=== PATIENT | male | born 1975 | race Caucasian/White ===

== ENCOUNTER 2016-06-09 15:10 | Emergency (ER) | payer BC ==
[2016-06-09 17:11] VITALS: BP 128/74
--- NOTE | 2016-06-09 17:21 | UC ---
Skin Complaint HPI - HPI Summary HPI Summary: large red, blistered rash, on the back wraps around left side. - History of Current Complaint Chief Complaint: UCRash Time Seen by Provider: 06/09/16 17:09 Stated Complaint: RASH,BACK PAIN Hx Obtained From: Patient Onset/Duration: Sudden Onset, Lasting Days Skin Exposure Onset/Duration: Days Ago Timing: Constant Onset Severity: Moderate Current Severity: Moderate Pain Intensity: 5 Pain Scale Used: 0-10 Numeric Location: Discrete - left back and side Character: Swelling, Pruritus, Raised, Painful Aggravating: Clothing, Humidity Alleviating: Nothing Associated Signs & Symptoms: Positive: Rash - Allergy/Home Medications Allergies/Adverse Reactions: Allergies Allergy/AdvReac Type Severity Reaction Status Date / Time No Known Allergies Allergy Verified 06/09/16 17:11 Home Medications: Home Medications Lisinopril & Hydrochlorothiazi [Zestoretic 20-12.5 mg-] 1 tab PO DAILY 06/09/16 [History Confirmed 06/09/16] Review of Systems Constitutional: Negative Skin: Rash Eyes: Negative ENT: Negative Respiratory: Negative Cardiovascular: Negative Gastrointestinal: Negative Genitourinary: Negative Motor: Negative Neurovascular: Negative Musculoskeletal: Negative Neurological: Negative Psychological: Negative All Other Systems Reviewed And Are Negative: Yes PMH/Surg Hx/FS Hx/Imm Hx Previously Healthy: Yes Cardiovascular History Of: Reports: Hypertension - Surgical History Surgical History: None - Family History Known Family History: Positive: Hypertension, Other - no fmh of blood clotting disorder; mother has had cellulitis on legs - Social History Alcohol Use: Occasionally Substance Use Type: None Smoking Status (MU): Never Smoked Tobacco Physical Exam Triage Information Reviewed: Yes Appearance: Well-Appearing, Well-Nourished, Pain Distress Vital Signs: Initial Vital Signs Temp 98.3 F 06/09/16 16:56 Pulse 89 06/09/16 16:56 Resp 16 06/09/16 16:56 BP 128/74 06/09/16 16:56 Pulse Ox 97 06/09/16 16:56 Vital Signs Reviewed: Yes Eye Exam: Normal Eyes: Positive: Conjunctiva Clear ENT Exam: Normal ENT: Positive: Normal ENT inspection, Hearing grossly normal, Pharynx normal, TMs normal Dental Exam: Normal Neck exam: Normal Neck: Positive: Supple, Nontender, No Lymphadenopathy Respiratory Exam: Normal Respiratory: Positive: Chest non-tender, Lungs clear, Normal breath sounds Cardiovascular Exam: Normal Cardiovascular: Positive: RRR, No Murmur, Pulses Normal Abdominal Exam: Normal Abdomen Description: Positive: Nontender, No Organomegaly, Soft Bowel Sounds: Positive: Present Musculoskeletal Exam: Normal Musculoskeletal: Positive: Strength Intact, ROM Intact, No Edema Neurological Exam: Normal Neurological: Positive: Alert Psychological Exam: Normal Skin: Positive: Other - eyrthemic base with blisters and scabs along t4 dermatome Course/Dx - Course Course Of Treatment: hx obtained, exam performed, meds prescribed. - Differential Diagnoses - Skin Complaint Differential Diagnoses: Cellulitis, Contact Dermatitis, Drug Rash, Varicella Zoster - Diagnoses Provider Diagnoses: shingles Discharge - Discharge Plan Condition: Stable Disposition: HOME Patient Education Materials: Shingles (ED) Additional Instructions: Take the medication as prescribed. keep the blisters covered. cool compress for itching, ibuprofen or hydrocodone for pain. follow upw ith any increase in systems
== END 2016-06-09 17:31 | disposition home or self-care (01) ==
LOC: UCCORT 15:10
DX: B02.9 Zoster without complications (principal)
CPT/HCPCS: 99212; G0463

== ENCOUNTER 2017-05-08 17:56 | Emergency (ER) | payer BC ==
[2017-05-08 19:45] VITALS: BP 129/69
--- NOTE | 2017-05-08 19:56 | UC ---
Respiratory Complaint HPI - HPI Summary HPI Summary: Pt c/o cough, and chest congestion X 4 days. - History of Current Complaint Stated Complaint: FEVER,COUGH,FLU SXS Time Seen by Provider: 05/08/17 19:30 Hx Obtained From: Patient Onset/Duration: Sudden Onset, Lasting Days - 4, Still Present Timing: Constant Severity Initially: Mild Severity Currently: Mild Character: Cough: Nonproductive Aggravating Factors: Exertion, Deep Breaths Alleviating Factors: Spontaneous Resolution Associated Signs And Symptoms: Positive: Wheezing, Nasal Congestion - Risk Factors Pulmonary Embolism Risk Factors: Negative Cardiac Risk Factors: Negative Pseudomonas Risk Factors: Negative Tuberculosis Risk Factors: Negative - Allergies/Home Medications Allergies/Adverse Reactions: Allergies Allergy/AdvReac Type Severity Reaction Status Date / Time No Known Allergies Allergy Verified 05/08/17 19:45 Home Medications: Home Medications Aspirin [Aspirin 81 MG TAB] 81 mg PO BEDTIME 05/08/17 [History Confirmed ] Atorvastatin* [Lipitor 20 MG*] 10 mg PO QPM 05/08/17 [History Confirmed 05/08/17 ] Cholecalciferol TAB* [Vitamin D TAB*] 3,000 unit PO DAILY 05/08/17 [History Confirmed 05/08/17] PMH/Surg Hx/FS Hx/Imm Hx Previously Healthy: Yes - Surgical History Surgical History: None - Family History Known Family History: Positive: Hypertension, Other - no fmh of blood clotting disorder; mother has had cellulitis on legs - Social History Occupation: Employed Full-time Lives: With Family Alcohol Use: Occasionally Substance Use Type: None Smoking Status (MU): Never Smoked Tobacco Have You Smoked in the Last Year: No - Immunization History Most Recent Influenza Vaccination: none Review of Systems Constitutional: Negative Skin: Negative Eyes: Negative ENT: Sinus Congestion Respiratory: Cough Cardiovascular: Negative Gastrointestinal: Negative Genitourinary: Negative Motor: Negative Neurovascular: Negative Musculoskeletal: Negative Neurological: Negative Psychological: Negative Is Patient Immunocompromised?: No All Other Systems Reviewed And Are Negative: Yes Physical Exam Triage Information Reviewed: Yes Appearance: Well-Appearing Vital Signs: Initial Vital Signs Temp 98.8 F 05/08/17 19:40 Pulse 84 05/08/17 19:40 Resp 17 05/08/17 19:40 BP 129/69 05/08/17 19:40 Pulse Ox 98 05/08/17 19:40 Eye Exam: Normal ENT: Positive: Nasal congestion Dental Exam: Normal Neck exam: Normal Respiratory Exam: Other Respiratory: Positive: Wheezing - fine Cardiovascular Exam: Normal Musculoskeletal Exam: Normal Neurological Exam: Normal Psychological Exam: Normal Skin Exam: Normal UC Diagnostic Evaluation - Laboratory O2 Sat by Pulse Oximetry: 98 Respiratory Course/Dx - Differential Dx/Diagnosis Differential Diagnosis/HQI/PQRI: Bronchitis, Influenza, Sinusitis Provider Diagnoses: Bronchitis Discharge - Discharge Plan Condition: Stable Disposition: HOME Prescriptions: Azithromycin TAB* [Zithromax TAB (Z-MAYTE) 250 mg #6 tabs] 2 tab PO .TODAY, THEN 1 DAILY #1 mayte Benzonatate CAP* [Tessalon 100 MG CAP*] 100 mg PO Q8H PRN #21 cap PRN Reason: Cough Patient Education Materials: Acute Bronchitis (ED) Referrals: Velasquez Clay MD [Primary Care Provider] - If Needed
== END 2017-05-08 20:07 | disposition home or self-care (01) ==
LOC: UCCORT 17:56
DX: J40 Bronchitis, not specified as acute or chronic (principal); Z79.82 Long term (current) use of aspirin
CPT/HCPCS: 99212; G0463

== ENCOUNTER 2017-06-30 18:38 | Emergency (ER) | payer BC ==
[2017-06-30 21:16] VITALS: BP 138/81
--- NOTE | 2017-06-30 21:24 | UC ---
UC General HPI - HPI Summary HPI Summary: pt c/o fever, cough, sore throat, low back ache since about thursday. his fever went to 103. no cp, lung disese, v/d/dysuria but has frequent urination. last fever medication was at 10am. - History of Current Complaint Chief Complaint: UCGeneralIllness Stated Complaint: FEVER/COUGH/BACK PAIN Time Seen by Provider: 06/30/17 21:17 Hx Obtained From: Patient Onset/Duration: Gradual Onset Timing: Constant Pain Intensity: 5 Aggravating: nothing Associated Signs & Symptoms: Positive: Back Pain, Cough, Fever, SOB. Negative: Chest Pain, Diarrhea, Dysuria, Nausea, Vomiting, Wheezing - Allergy/Home Medications Allergies/Adverse Reactions: Allergies Allergy/AdvReac Type Severity Reaction Status Date / Time No Known Allergies Allergy Verified 05/08/17 19:45 Home Medications: Home Medications Dm/Acetaminophen/Doxylamine [Coricidin Hbp Cold-Multi Sympt] 06/30/17 [History] PMH/Surg Hx/FS Hx/Imm Hx Endocrine History: Dyslipidemia Cardiovascular History: Hypertension - Surgical History Surgical History: None - Family History Known Family History: Positive: Hypertension, Other - no fmh of blood clotting disorder; mother has had cellulitis on legs - Social History Lives: With Family Alcohol Use: Occasionally Substance Use Type: None Smoking Status (MU): Never Smoked Tobacco Have You Smoked in the Last Year: No - Immunization History Most Recent Influenza Vaccination: none Vaccination Up to Date: Yes Review of Systems Constitutional: Fever, Fatigue ENT: Sore Throat Respiratory: Shortness Of Breath, Cough Musculoskeletal: Myalgia Is Patient Immunocompromised?: No All Other Systems Reviewed And Are Negative: Yes Physical Exam Triage Information Reviewed: Yes Appearance: Well-Appearing Vital Signs: Initial Vital Signs Temp 99.2 F 06/30/17 21:09 Pulse 86 06/30/17 21:09 Resp 18 06/30/17 21:09 BP 138/81 06/30/17 21:09 Pulse Ox 95 06/30/17 21:09 Vital Signs Reviewed: Yes Eyes: Positive: Conjunctiva Clear ENT: Positive: Pharynx normal, TMs normal. Negative: Nasal congestion, Nasal drainage Neck: Positive: Supple, Nontender, No Lymphadenopathy Respiratory: Positive: Lungs clear, Normal breath sounds Cardiovascular: Positive: RRR, No Murmur, Pulses Normal Abdomen Description: Positive: Nontender, No Organomegaly, Soft. Negative: CVA Tenderness (R), CVA Tenderness (L), Distended, Guarding Bowel Sounds: Positive: Present Neurological: Positive: Alert Psychological: Positive: Age Appropriate Behavior Skin Exam: Normal Diagnostics - Laboratory Diagnostic Studies Completed/Ordered: U/A=TRACE BLOOD, RAPID FLU a POSITIVE Course/Dx - Differential Dx - Multi-Symptom Provider Diagnoses: Influenza A Discharge - Discharge Plan Condition: Stable Disposition: HOME Prescriptions: Oseltamivir CAP* [Tamiflu CAP*] 75 mg PO BID #10 cap Patient Education Materials: Influenza (ED) Forms: *Work Release Referrals: Velasquez Clay MD [Primary Care Provider] - 7 Days
[2017-06-30] MEDS ORDERED: Oseltamivir CAP* 75 MG CAP PO ONE (22:10)
== END 2017-06-30 22:19 | disposition home or self-care (01) ==
LOC: UCCORT 18:38
DX: J10.1 Influenza due to other identified influenza virus with other respiratory manifestations (principal); I10 Essential (primary) hypertension
CPT/HCPCS: 81003; 87502; 99212; A9270-GY; G0463

== ENCOUNTER 2018-02-02 16:59 | Emergency (ER) | payer BC ==
[2018-02-02 17:23] VITALS: BP 143/78
--- NOTE | 2018-02-02 17:39 | UC ---
Skin Complaint HPI - HPI Summary HPI Summary: Patient states that he had a pimple to the inside of his left lower leg Thursday evening he states that he used the tip of a needle to pop it and a little bit of pus drained. He notes the area surrounding became red. He also notes a pustule on his left arm and up pustule just to the inside of his area of erythema on the left lower leg. He denies any associated fever or chills. He denies any history of MRSA, diabetes and fever. - History of Current Complaint Chief Complaint: UCSkin Time Seen by Provider: 02/02/18 17:21 Stated Complaint: SKIN COMPLAINT Hx Obtained From: Patient Onset/Duration: Gradual Onset Timing: Constant Pain Intensity: 1 Alleviating Factor(s): Nothing Associated Signs & Symptoms: Positive: Rash. Negative: Fever - Allergy/Home Medications Allergies/Adverse Reactions: Allergies Allergy/AdvReac Type Severity Reaction Status Date / Time No Known Allergies Allergy Verified 02/02/18 17:23 Review of Systems Constitutional: Negative Skin: Rash Eyes: Negative ENT: Negative Respiratory: Negative Cardiovascular: Negative Gastrointestinal: Negative Genitourinary: Negative Motor: Negative Neurovascular: Negative Musculoskeletal: Negative Neurological: Negative Psychological: Negative Is Patient Immunocompromised?: No All Other Systems Reviewed And Are Negative: Yes PMH/Surg Hx/FS Hx/Imm Hx - Additional Past Medical History Additional PMH: Cellulitis Endocrine History: Dyslipidemia Cardiovascular History: Hypertension - Surgical History Surgical History: None - Family History Known Family History: Positive: Hypertension, Other - no fmh of blood clotting disorder; mother has had cellulitis on legs - Social History Occupation: Employed Full-time Lives: With Family Alcohol Use: Occasionally Substance Use Type: None Smoking Status (MU): Never Smoked Tobacco Have You Smoked in the Last Year: No - Immunization History Most Recent Influenza Vaccination: none Vaccination Up to Date: Yes Physical Exam Triage Information Reviewed: Yes Appearance: Well-Appearing Vital Signs: Initial Vital Signs Temp 97.5 F 02/02/18 17:19 Pulse 103 02/02/18 17:19 Resp 20 02/02/18 17:19 BP 143/78 02/02/18 17:19 Pulse Ox 97 02/02/18 17:19 Vital Signs Reviewed: Yes Eyes: Positive: Conjunctiva Clear ENT: Positive: Normal ENT inspection Neck: Positive: Supple, Nontender, No Lymphadenopathy Respiratory: Positive: Lungs clear, Normal breath sounds Cardiovascular: Positive: RRR, No Murmur Abdomen Description: Positive: Nontender, No Organomegaly, Soft Bowel Sounds: Positive: Present Musculoskeletal: Positive: ROM Intact Neurological: Positive: Alert Psychological: Positive: Age Appropriate Behavior Skin Exam: Normal Skin: Positive: rashes - Three-inch area of erythema warmth and tenderness medial aspect right lower leg with a central scab. The area is not fluctuant and there is no streaking. Just medial to that is a single small pustule. The left upper forearm has an approximate 3 mm pustule as well. Course/Dx - Course Course Of Treatment: Procedure: Pustule left upper arm was cleansed with an alcohol swab then the tip of an 18-gauge sterile needle was used on growth and a small amount of pus was drained and cultured. Site was cleaned and covered with a bandage patient tolerated well. Area of cellulitis on the left lower leg was outlined with a skin marker. We'll treat with doxycycline to cover his cellulitis as well as any possibility of MRSA. Need for close follow-up stressed at time of visit to which patient agrees. Patient also agrees to go the ER for any worsening. - Diagnoses Provider Diagnoses: Cellulitis left lower leg. Pustule to left forearm and left lower leg. Discharge - Sign-Out/Discharge Documenting (check all that apply): Patient Departure All imaging exams completed and their final reports reviewed: No Studies - Discharge Plan Condition: Stable Disposition: HOME Prescriptions: DOXYcycline CAP(*) [DOXYcycline 100MG CAP(*)] 100 mg PO BID 10 Days #20 cap Patient Education Materials: Cellulitis (ED) Referrals: Velasquez Clay MD [Primary Care Provider] - 2 Days - Billing Disposition and Condition Condition: STABLE Disposition: Home
== END 2018-02-02 17:47 | disposition home or self-care (01) ==
LOC: UCCORT 16:59
DX: L03.116 Cellulitis of left lower limb (principal); L08.9 Local infection of the skin and subcutaneous tissue, unspecified; R78.81 Bacteremia; B95.62 Methicillin resistant Staphylococcus aureus infection as the cause of diseases classified elsewhere; I10 Essential (primary) hypertension
CPT/HCPCS: 87070; 87205; 87640; 87641; 99212; G0463

== ENCOUNTER 2018-06-06 09:55 | Emergency (ER) | payer BC ==
[2018-06-06 11:21] VITALS: BP 145/62
--- NOTE | 2018-06-06 11:51 | UC ---
Skin Complaint HPI - HPI Summary HPI Summary: 43-year-old male comes in to clinic with a chief complaint of skin infection on his left lower leg. In the last week he had an area that started out as a pus pocket which broke and then started to improve after draining. Today he notices the second area with a pus pocket also on the left lower leg. No fevers or chills feels well otherwise. Does have a history of MRSA. - History of Current Complaint Chief Complaint: UCSkin Time Seen by Provider: 06/06/18 11:34 Stated Complaint: SKIN COMPLAINT Pain Intensity: 3 - Allergy/Home Medications Allergies/Adverse Reactions: Allergies Allergy/AdvReac Type Severity Reaction Status Date / Time No Known Allergies Allergy Verified 06/06/18 11:14 PMH/Surg Hx/FS Hx/Imm Hx Previously Healthy: Yes - MRSA Endocrine History: Dyslipidemia Cardiovascular History: Hypertension - Surgical History Surgical History: Yes Surgery Procedure, Year, and Place: colonosopy - Family History Known Family History: Positive: Hypertension, Other - no fmh of blood clotting disorder; mother has had cellulitis on legs - Social History Alcohol Use: None Substance Use Type: None Smoking Status (MU): Never Smoked Tobacco Have You Smoked in the Last Year: No - Immunization History Most Recent Influenza Vaccination: none Vaccination Up to Date: Yes Review of Systems All Other Systems Reviewed And Are Negative: Yes Constitutional: Positive: Negative Skin: Positive: Other - SEE HPI ENT: Positive: Negative Respiratory: Positive: Negative Cardiovascular: Positive: Negative Gastrointestinal: Positive: Negative Motor: Positive: Negative Neurovascular: Positive: Negative Musculoskeletal: Positive: Negative Neurological: Positive: Negative Psychological: Positive: Negative Is Patient Immunocompromised?: No Physical Exam Triage Information Reviewed: Yes Appearance: Well-Appearing, No Pain Distress, Well-Nourished Vital Signs: Initial Vital Signs Temp 99.0 F 06/06/18 11:15 Pulse 80 06/06/18 11:15 Resp 18 06/06/18 11:15 BP 145/62 06/06/18 11:15 Pulse Ox 97 06/06/18 11:15 Vital Signs Reviewed: Yes Eye Exam: Normal Eyes: Positive: Conjunctiva Clear Neck exam: Normal Neck: Positive: Supple Respiratory: Positive: No respiratory distress Musculoskeletal Exam: Normal Musculoskeletal: Positive: Strength Intact, ROM Intact Neurological Exam: Normal Neurological: Positive: Alert, Muscle Tone Normal Psychological Exam: Normal Psychological: Positive: Age Appropriate Behavior Skin: Positive: Other - Of the left anterior brock there is a pustule that's 5 mm in diameter. This drained pus and I sent a sample for culture and sensitivity. Just above the pus pocket there is the old wound that had her drained and this also drained some additional pus. Area of erythema 5 cm x 2 cm on the brock. It is not obvious whether or not there is a drainable abscess. We discussed incision and drainage at this time patient declined and I agree as it's unsure whether or not there is a drainable pocket of pus. Course/Dx - Diagnoses Provider Diagnosis: Abscess of left lower leg Discharge - Sign-Out/Discharge Documenting (check all that apply): Patient Departure All imaging exams completed and their final reports reviewed: No Studies - Discharge Plan Condition: Stable Disposition: HOME Prescriptions: DOXYcycline CAP(*) [DOXYcycline 100MG CAP(*)] 100 mg PO BID #20 cap Mupirocin 1 applic TOPICAL BID #22 gm Patient Education Materials: MRSA (Methicillin-Resistant Staphylococcus Aureus ) (ED), Abscess (ED) Referrals: Velasquez Clay MD [Primary Care Provider] - Additional Instructions: FOLLOW UP WITH YOUR DOCTOR IF NOT COMPLETELY IMPROVED. GET RECHECKED FOR ANY WORSENING OF YOUR CONDITION; SPREAD ON INFECTION, YOU FEEL ILL OR QUESTIONS OR CONCERNS. - Billing Disposition and Condition Condition: STABLE Disposition: Home
== END 2018-06-06 12:01 | disposition home or self-care (01) ==
LOC: UCCORT 09:55
DX: L02.416 Cutaneous abscess of left lower limb (principal); I10 Essential (primary) hypertension; Z86.14 Personal history of Methicillin resistant Staphylococcus aureus infection
CPT/HCPCS: 87070; 87077; 87186; 87205; 87640; 87641; 99212; G0463